=== PATIENT | male | born 1990 | race Caucasian/White ===

== ENCOUNTER 2016-04-30 23:16 | Emergency (ER) | payer SELFPAY ==
[~2016-04-30] VITALS: Ht 182.9 cm; Wt 66.0 kg
--- OUTSIDE RECORDS SUMMARY | 2016-04-30 23:20 | XMS REPORT ---
Author Author GENERATED, SYSTEM Organization Unknown Address Unknown Phone Unavailable Care Team Providers Care Manager Technology Name Role Phone UNASSIGNED DOCTOR MD JOEL DOCTOR PP [phone] Reason For Visit Reason for Visit from 02/10/2015 6:06 PM:* Pt Stated Reason for Adm : DKA Chief Complaint DKA Social History Social History from 02/10/2015 6:06 PM:* Tobacco Use? : Current Everyday Smoker Functional Status Functional Status from 02/12/2015 7:28 AM:* LOC : Alert * Oriented To : Person,Place,Time,Event * Weight Bearing Status : Full * Assist Level : Independent * # Assists : Independent Functional Status from 02/11/2015 7:10 PM:* LOC : Alert * Oriented To : Person,Place,Time,Event * Weight Bearing Status : Full * Assist Level : Independent * # Assists : Independent Functional Status from 02/11/2015 7:00 AM:* LOC : Alert * Oriented To : Person,Place,Time,Event * Weight Bearing Status : Full * Assist Level : Independent * # Assists : Independent Functional Status from 02/10/2015 7:30 PM:* LOC : Alert * Oriented To : Person,Place,Time,Event * Weight Bearing Status : Full * Assist Level : Independent * # Assists : Independent Functional Status from 02/10/2015 6:06 PM:* LOC : Alert * Oriented To : Person,Place,Time * Weight Bearing Status : Full * Assist Level : Independent * # Assists : Independent Vital Signs Hospital Vital Signs from 02/12/2015 12:41 PM:* Height : 6/0 ft,in * Temperature : 98.6 F * Pulse : 97 * Respirations : 18 * BP : 161/91 Hospital Vital Signs from 02/12/2015 12:00 PM:* Heart Rate : 76 * Resp Rate : 20 * Systolic BP (mmHg) : 124 * Diastolic BP (mmHg) : 82 * Mean BP (mmHg) : 97 * O2 Saturation (%) : 98 Hospital Vital Signs from 02/12/2015 8:00 AM:* Heart Rate : 72 * Resp Rate : 16 * Systolic BP (mmHg) : 108 * Diastolic BP (mmHg) : 66 * Mean BP (mmHg) : 84 * O2 Saturation (%) : 99 Hospital Vital Signs from 02/12/2015 7:28 AM:* Heart Rate : 76 Hospital Vital Signs from 02/12/2015 7:00 AM:* Temp : 98 * Heart Rate : 76 * Resp Rate : 20 * Systolic BP (mmHg) : 115 * Diastolic BP (mmHg) : 75 * Mean BP (mmHg) : 84 * O2 Saturation (%) : 99 Hospital Vital Signs from 02/12/2015 6:10 AM:* Weight : 57/ kg * Height : 6/0 ft,in Hospital Vital Signs from 02/12/2015 12:00 AM:* Temp : 96.9 * Systolic BP (mmHg) : 115 * Diastolic BP (mmHg) : 69 * Mean BP (mmHg) : 83 Hospital Vital Signs from 02/11/2015 8:00 PM:* Temp : 97.7 * Resp Rate : 16 * Systolic BP (mmHg) : 111 * Diastolic BP (mmHg) : 74 * Mean BP (mmHg) : 86 Hospital Vital Signs from 02/11/2015 4:00 PM:* Heart Rate : 93 * Resp Rate : 16 * Systolic BP (mmHg) : 114 * Diastolic BP (mmHg) : 79 * Mean BP (mmHg) : 91 Hospital Vital Signs from 02/11/2015 9:23 AM:* Weight : 57.5/ kg * Height : 6/0 ft,in Hospital Vital Signs from 02/11/2015 8:00 AM:* Temp : 98.6 * Heart Rate : 77 * Resp Rate : 14 * Systolic BP (mmHg) : 111 * Diastolic BP (mmHg) : 81 * Mean BP (mmHg) : 93 Hospital Vital Signs from 02/11/2015 6:00 AM:* Heart Rate : 79 * Resp Rate : 10 Hospital Vital Signs from 02/11/2015 5:28 AM:* Weight : 57.5/ kg * Height : 6/0 ft,in Hospital Vital Signs from 02/11/2015 5:00 AM:* Heart Rate : 79 * Resp Rate : 10 Hospital Vital Signs from 02/11/2015 4:00 AM:* Heart Rate : 85 * Resp Rate : 12 * Systolic BP (mmHg) : 110 * Diastolic BP (mmHg) : 68 * Mean BP (mmHg) : 79 * O2 Saturation (%) : 100 Hospital Vital Signs from 02/11/2015 3:00 AM:* Temp : 98.5 * Heart Rate : 78 * Resp Rate : 10 * Systolic BP (mmHg) : 100 * Diastolic BP (mmHg) : 73 * Mean BP (mmHg) : 81 * O2 Saturation (%) : 99 Hospital Vital Signs from 02/11/2015 2:00 AM:* Heart Rate : 83 * Resp Rate : 22 * Systolic BP (mmHg) : 108 * Diastolic BP (mmHg) : 69 * Mean BP (mmHg) : 85 * O2 Saturation (%) : 100 Hospital Vital Signs from 02/11/2015 1:00 AM:* Heart Rate : 93 * Resp Rate : 14 * Systolic BP (mmHg) : 115 * Diastolic BP (mmHg) : 75 * Mean BP (mmHg) : 88 * O2 Saturation (%) : 99 Hospital Vital Signs from 02/11/2015 12:00 AM:* Heart Rate : 86 * Resp Rate : 13 * Systolic BP (mmHg) : 110 * Diastolic BP (mmHg) : 72 * Mean BP (mmHg) : 82 * O2 Saturation (%) : 96 Hospital Vital Signs from 02/10/2015 11:00 PM:* Temp : 98 * Heart Rate : 92 * Resp Rate : 17 * Systolic BP (mmHg) : 109 * Diastolic BP (mmHg) : 74 * Mean BP (mmHg) : 84 * O2 Saturation (%) : 98 Hospital Vital Signs from 02/10/2015 10:00 PM:* Heart Rate : 90 * Resp Rate : 21 * Systolic BP (mmHg) : 112 * Diastolic BP (mmHg) : 75 * Mean BP (mmHg) : 86 Hospital Vital Signs from 02/10/2015 9:00 PM:* Heart Rate : 89 * Resp Rate : 15 * Systolic BP (mmHg) : 113 * Diastolic BP (mmHg) : 75 * Mean BP (mmHg) : 92 * O2 Saturation (%) : 100 Hospital Vital Signs from 02/10/2015 8:00 PM:* Resp Rate : 28 * Systolic BP (mmHg) : 116 * Diastolic BP (mmHg) : 82 * Mean BP (mmHg) : 92 * O2 Saturation (%) : 100 Hospital Vital Signs from 02/10/2015 7:30 PM:* Heart Rate : 92 Hospital Vital Signs from 02/10/2015 7:00 PM:* Temp : 98.7 * Heart Rate : 98 * Resp Rate : 18 * Systolic BP (mmHg) : 109 * Diastolic BP (mmHg) : 81 * Mean BP (mmHg) : 90 * O2 Saturation (%) : 98 Hospital Vital Signs from 02/10/2015 6:06 PM:* Weight : 57.9/ kg * Height : 6/0 ft,in Hospital Vital Signs from 02/10/2015 6:00 PM:* Temp : 98.6 * Heart Rate : 98 * Resp Rate : 15 * Systolic BP (mmHg) : 114 * Diastolic BP (mmHg) : 89 * Mean BP (mmHg) : 96 * O2 Saturation (%) : 99 Hospital Vital Signs from 02/10/2015 5:30 PM:* Resp Rate : 15 Hospital Vital Signs from 02/10/2015 5:15 PM:* Heart Rate : 96 * Resp Rate : 15 * O2 Saturation (%) : 99 Hospital Vital Signs from 02/10/2015 5:03 PM:* Heart Rate : 100 * Resp Rate : 25 * O2 Saturation (%) : 94 Results Chemistry from 02/12/2015 4:16 AMSODIUM 137 MMOL/L (136-145 MMOL/L) POTASSIUM 3.0 MMOL/L L (3.5-5.1 MMOL/L) CHLORIDE 107 MMOL/L (98-107 MMOL/L) TCO2 21.7 MMOL/L (21.0-32.0 MMOL/L) *ANION GAP 8.3 MMOL/L (8.0-16.0 MMOL/L) BUN 12 MG/DL (7-18 MG/DL) CREATININE 0.69 MG/DL L (0.70-1.30 MG/DL) *BUN/CREATININE RATIO 17.4 H (9.1-17.0 ) GLUCOSE 217 MG/DL H (65-99 MG/DL) *GFR EST NON AFR ESTONIAN >90 ML/MIN *GFRA EST AFR AMER >90 ML/MIN CALCIUM 8.7 MG/DL (8.5-10.1 MG/DL) BILIRUBIN TOTAL 0.82 MG/DL (0.20-1.00 MG/DL) TOTAL PROTEIN 6.2 GM/DL L (6.4-8.2 GM/DL) ALBUMIN 3.4 GM/DL (3.4-5.0 GM/DL) *GLOBULIN 2.8 GM/DL (2.3-3.5 GM/DL) *A/G RATIO 1.2 MG/DL L (1.5-2.2 MG/DL) ALK PHOS 77 U/L (46-116 U/L) ALT (SGPT) 28 U/L (14-59 U/L) AST (SGOT) 13 U/L L (15-37 U/L) Chemistry from 02/11/2015 12:58 PMSODIUM 135 MMOL/L L (136-145 MMOL/L) POTASSIUM 3.4 MMOL/L L (3.5-5.1 MMOL/L) CHLORIDE 105 MMOL/L (98-107 MMOL/L) TCO2 20.9 MMOL/L L (21.0-32.0 MMOL/L) *ANION GAP 9.1 MMOL/L (8.0-16.0 MMOL/L) BUN 9 MG/DL (7-18 MG/DL) CREATININE 0.97 MG/DL (0.70-1.30 MG/DL) *BUN/CREATININE RATIO 9.3 (9.1-17.0 ) GLUCOSE 256 MG/DL H (65-99 MG/DL) CALCIUM 8.4 MG/DL L (8.5-10.1 MG/DL) *SODIUM, CORRECTED 137 MMOL/L (136-145 MMOL/L) *OSMOLALITY, CALCULATED 287 MOSM/KG (278-305 MOSM/KG) MAGNESIUM 1.8 MG/DL (1.8-2.4 MG/DL) PHOSPHORUS 1.9 MG/DL L (2.6-4.7 MG/DL) Chemistry from 02/11/2015 9:18 AMSODIUM 137 MMOL/L (136-145 MMOL/L) POTASSIUM 3.4 MMOL/L L (3.5-5.1 MMOL/L) CHLORIDE 108 MMOL/L H (98-107 MMOL/L) TCO2 19.7 MMOL/L L (21.0-32.0 MMOL/L) *ANION GAP 9.3 MMOL/L (8.0-16.0 MMOL/L) BUN 8 MG/DL (7-18 MG/DL) CREATININE 0.84 MG/DL (0.70-1.30 MG/DL) *BUN/CREATININE RATIO 9.5 (9.1-17.0 ) GLUCOSE 123 MG/DL H (65-99 MG/DL) CALCIUM 8.5 MG/DL (8.5-10.1 MG/DL) *SODIUM, CORRECTED 137 MMOL/L (136-145 MMOL/L) *OSMOLALITY, CALCULATED 284 MOSM/KG (278-305 MOSM/KG) MAGNESIUM 1.8 MG/DL (1.8-2.4 MG/DL) PHOSPHORUS 1.9 MG/DL L (2.6-4.7 MG/DL) Chemistry from 02/11/2015 4:22 AMSODIUM 134 MMOL/L L (136-145 MMOL/L) POTASSIUM 3.3 MMOL/L L (3.5-5.1 MMOL/L) CHLORIDE 107 MMOL/L (98-107 MMOL/L) TCO2 18.4 MMOL/L L (21.0-32.0 MMOL/L) *ANION GAP 8.6 MMOL/L (8.0-16.0 MMOL/L) BUN 9 MG/DL (7-18 MG/DL) CREATININE 0.88 MG/DL (0.70-1.30 MG/DL) *BUN/CREATININE RATIO 10.2 (9.1-17.0 ) GLUCOSE 200 MG/DL H (65-99 MG/DL) CALCIUM 8.5 MG/DL (8.5-10.1 MG/DL) *SODIUM, CORRECTED 136 MMOL/L (136-145 MMOL/L) *OSMOLALITY, CALCULATED 282 MOSM/KG (278-305 MOSM/KG) *EST AVG GLUCOSE 323.5 gm/dl MAGNESIUM 1.9 MG/DL (1.8-2.4 MG/DL) PHOSPHORUS 1.3 MG/DL L (2.6-4.7 MG/DL) HEMOGLOBIN A1C 12.9 % H (4.5-6.2 %) Chemistry from 02/11/2015 12:12 AMSODIUM 130 MMOL/L L (136-145 MMOL/L) POTASSIUM 3.6 MMOL/L (3.5-5.1 MMOL/L) CHLORIDE 103 MMOL/L (98-107 MMOL/L) TCO2 17.1 MMOL/L L (21.0-32.0 MMOL/L) *ANION GAP 9.9 MMOL/L (8.0-16.0 MMOL/L) BUN 10 MG/DL (7-18 MG/DL) CREATININE 1.04 MG/DL (0.70-1.30 MG/DL) *BUN/CREATININE RATIO 9.6 (9.1-17.0 ) GLUCOSE 310 MG/DL H (65-99 MG/DL) *GFR EST NON AFR ESTONIAN >90 ML/MIN *GFRA EST AFR AMER >90 ML/MIN CALCIUM 8.4 MG/DL L (8.5-10.1 MG/DL) *SODIUM, CORRECTED 133 MMOL/L L (136-145 MMOL/L) *OSMOLALITY, CALCULATED 281 MOSM/KG (278-305 MOSM/KG) MAGNESIUM 1.8 MG/DL (1.8-2.4 MG/DL) PHOSPHORUS 1.9 MG/DL L (2.6-4.7 MG/DL) Chemistry from 02/10/2015 10:01 PMSODIUM 132 MMOL/L L (136-145 MMOL/L) POTASSIUM 3.6 MMOL/L (3.5-5.1 MMOL/L) CHLORIDE 104 MMOL/L (98-107 MMOL/L) TCO2 14.8 MMOL/L L (21.0-32.0 MMOL/L) *ANION GAP 13.2 MMOL/L (8.0-16.0 MMOL/L) BUN 11 MG/DL (7-18 MG/DL) CREATININE 1.02 MG/DL (0.70-1.30 MG/DL) *BUN/CREATININE RATIO 10.8 (9.1-17.0 ) GLUCOSE 210 MG/DL H (65-99 MG/DL) CALCIUM 8.4 MG/DL L (8.5-10.1 MG/DL) *SODIUM, CORRECTED 134 MMOL/L L (136-145 MMOL/L) *OSMOLALITY, CALCULATED 280 MOSM/KG (278-305 MOSM/KG) MAGNESIUM 1.8 MG/DL (1.8-2.4 MG/DL) PHOSPHORUS 2.0 MG/DL L (2.6-4.7 MG/DL) Chemistry from 02/10/2015 8:15 PMSODIUM 132 MMOL/L L (136-145 MMOL/L) POTASSIUM 3.6 MMOL/L (3.5-5.1 MMOL/L) CHLORIDE 102 MMOL/L (98-107 MMOL/L) TCO2 17.6 MMOL/L L (21.0-32.0 MMOL/L) *ANION GAP 12.4 MMOL/L (8.0-16.0 MMOL/L) BUN 13 MG/DL (7-18 MG/DL) CREATININE 1.03 MG/DL (0.70-1.30 MG/DL) *BUN/CREATININE RATIO 12.6 (9.1-17.0 ) GLUCOSE 174 MG/DL H (65-99 MG/DL) CALCIUM 8.5 MG/DL (8.5-10.1 MG/DL) *SODIUM, CORRECTED 133 MMOL/L L (136-145 MMOL/L) *OSMOLALITY, CALCULATED 278 MOSM/KG (278-305 MOSM/KG) MAGNESIUM 1.8 MG/DL (1.8-2.4 MG/DL) PHOSPHORUS 2.0 MG/DL L (2.6-4.7 MG/DL) Chemistry from 02/10/2015 6:30 PMSODIUM 133 MMOL/L L (136-145 MMOL/L) POTASSIUM 3.4 MMOL/L L (3.5-5.1 MMOL/L) CHLORIDE 102 MMOL/L (98-107 MMOL/L) TCO2 17.0 MMOL/L L (21.0-32.0 MMOL/L) *ANION GAP 14.0 MMOL/L (8.0-16.0 MMOL/L) BUN 14 MG/DL (7-18 MG/DL) CREATININE 1.11 MG/DL (0.70-1.30 MG/DL) *BUN/CREATININE RATIO 12.6 (9.1-17.0 ) GLUCOSE 171 MG/DL H (65-99 MG/DL) CALCIUM 8.7 MG/DL (8.5-10.1 MG/DL) *SODIUM, CORRECTED 134 MMOL/L L (136-145 MMOL/L) *OSMOLALITY, CALCULATED 281 MOSM/KG (278-305 MOSM/KG) MAGNESIUM 1.8 MG/DL (1.8-2.4 MG/DL) PHOSPHORUS 2.0 MG/DL L (2.6-4.7 MG/DL) Hematology from 02/12/2015 4:17 AMWBC 5.2 X10e3/UL (3.6-11.2 X10e3/UL) RBC 4.98 X10e6/UL (4.06-5.63 X10e6/UL) HEMOGLOBIN 14.6 G/DL (12.5-16.3 G/DL) HEMATOCRIT 40.4 % (36.7-47.1 %) *MCV 81.2 FL (80.0-100.0 FL) *MCH 29.3 PG (27.0-33.0 PG) *MCHC 36.1 G/DL H (32.0-36.0 G/DL) *RDW 13.4 % (12.3-17.0 %) *RDWSD 38.1 (37.1-47.8 ) PLATELET 159 X10e3/UL (159-386 X10e3/UL) *MPV 9.4 FL (7.4-10.4 FL) AUTOMATED DIFF PERFORMED SEGS 39.6 % *LYMPHOCYTES 50.3 % *MONOCYTES 5.9 % *EOSINOPHILS 3.4 % *BASOPHILS 0.8 % *ABSOLUTE NEUTROPHILS 2.10 X10e3/UL (1.80-7.80 X10e3/UL) *ABSOLUTE LYMPHOCYTES 2.60 X10e3/UL (1.00-3.00 X10e3/UL) *ABSOLUTE MONOCYTES 0.30 X10e3/UL (0.30-1.00 X10e3/UL) *ABSOLUTE EOSINOPHILS 0.20 X10e3/UL (0.00-0.50 X10e3/UL) *ABSOLUTE BASOPHILS 0.00 X10e3/UL (0.00-0.20 X10e3/UL) Problems Encounter Diagnosis * Blood Glucose Abnormal Status:Active. * Diabetes Mellitus, Type 1 Status:Active. * Diabetic Ketoacidosis Status:Active. * Nutritional Deficiency Status:Active. Encounters Encounter Diagnosis * Blood Glucose Abnormal Status:Active. * Diabetes Mellitus, Type 1 Status:Active. * Diabetic Ketoacidosis Status:Active. * Nutritional Deficiency Status:Active. Plan of Care Treatment Plan from 02/11/2015 10:09 AM:* Care Management Note : Admission status: Inpatient. Per H&P: The patient is a 24-year-old, male, who presented to the emergency room with a 6-week history of weight loss. The patient stated he has lost about 30 pounds during this duration. He is constantly thirsty, so he drinks a lot of water and then he has to go to the bathroom right away as well. He stated that for the last 1 week his symptoms have been worse this morning and this morning he became very dizzy when he tried to stand up. He was weak all over as well. He therefore decided to come to the emergency room. In the ER , his blood sugar was found to be elevated at 320 and other labs indicated DKA, and was sent to ICU for further monitoring. labs and vital signs noted. POC: Colon And Rectal Surgeon and investment fund manager consulted. monitor vital signs. Brad Skelton for DVT prevention. DKA protocol was initiated. Strict I/O. Monitor bedside glucose checks hourly. NPO. Monitor labs. IVF at 150. IV Insulin drip started. IV Protonix. stay anticipated longer than 2 midnights. meets inpatient status. Procedures No relevant procedures performed. Immunizations No immunizations administered or ordered. Hospital Course Hospital Discharge Instructions Allergies, Adverse Reactions, Alerts * No Latex Allergy. * No IV Contrast Allergy. * No Known Drug Allergies. Medication Medication reconciliation has not been performed.
--- OUTSIDE RECORDS SUMMARY | 2016-04-30 23:20 | XMS REPORT ---
Author Author GENERATED, SYSTEM Organization Unknown Address Unknown Phone Unavailable Care Team Providers Care Weaving Professor Name Role Phone UNASSIGNED DOCTOR , DOCTOR PP [phone] Reason For Visit Chief Complaint DKA Social History Functional Status Vital Signs Results Problems Encounter Diagnosis No relevant problems exist. Additional Problems * Blood Glucose Abnormal Status:Active. * Diabetes Mellitus, Type 1 Status:Active. * Nutritional Deficiency Status:Active. Encounters Encounter Diagnosis No relevant problems exist. Plan of Care Procedures No relevant procedures performed. Immunizations No immunizations administered or ordered. Hospital Course Hospital Discharge Instructions Allergies, Adverse Reactions, Alerts * Latex Allergy has not been assessed. * IV Contrast Allergy has not been assessed. * No Known Drug Allergies. Medication Medication reconciliation has not been performed.
[2016-04-30 23:24] VITALS: TEMP 98.6; Ht 182.9 cm; Wt 66.0 kg
--- NOTE | 2016-04-30 23:49 | ERPDOC ---
Departure Disposition Decision Date: May 01, 2016 Disposition Decision Time: 01:56 Disposition: 01 DISCHARGED HOME, SELF-CARE Impression Impression Impression: Primary Impression: Gastroenteritis Severity: Moderate Condition: Stable Seen By: Physician only Patient Instructions: Gastroenteritis (ED) Problems/Meds/Labs Reviewed?: Yes Medications reviewed and manag: Yes Follow up care ordered?: Yes Mental Status: Oriented Scripts Prochlorperazine Maleate (Prochlorperazine Maleate) 10 Mg Tablet 10 MG PO QID Y for NAUSEA &/OR VOMITING, #15 TAB Take 1 tablet, by mouth, 4 times a day. Prov: GARRETT HITCHCOCK MD 05/01/16 HPI - Abdominal Pain General Chief Complaint: Nausea,Vomiting,Diarrhea Stated Complaint: DIABETIC ISSUES Time Seen by Provider: 23:49 Source: patient, family History/Exam Limitations: no limitations HPI - Abdominal Pain Initial Comments Patient is a 26-year-old male presents emergency room for evaluation of nausea. Patient's had a 2 to three-day history of nausea with no vomiting, has not been eating well secondary to no appetite. Patient is a type I diabetic who takes his mother's insulin because he does not have a primary care physician. Patient worsening symptoms so decided today to present to the ER for evaluation. Occurred At: home Onset: Gradual, Getting worse Duration: other (2 days) Allergies: Coded Allergies: NKDA (Verified Allergy, Unknown, 04/30/16) Past History Past Medical History Metabolic: diabetes Social History Smoking Status: Current every day smoker Substance Use Type: does not use Alcohol Intake: none Review of Systems Constitutional Constitutional: appetite decrease, weakness, DENIES: chills, dizziness, fever Eyes Vision: DENIES: double vision, loss of visual arce ENMT Sinuses: DENIES: congestion, rhinorrhea Mouth/Throat: DENIES: scratchy throat, sore throat Cardiovascular Cardiac: DENIES: chest pain, dyspnea on exertion Pulmonary Respiratory: DENIES: cough, dyspnea, sputum, tachypnea GI Upper Abdomen: nausea, DENIES: pain, vomiting Lower Abdomen: DENIES: constipation, diarrhea, pain General: DENIES: burning, frequency, urgency Musculoskeletal General: DENIES: cramps, pain, weakness Integumentary Skin: DENIES: color change, itching, rash Endocrine Endocrine: DENIES: heat/cold intolerance Hematologic/Lymphatic Hematologic/Lymphatic: DENIES: anemia Physical Exam General General Nourishment: well nourished, well developed General Body Habitus: well groomed Vitals and Pain Weight: Kilograms: Height (feet): Height (inches): Triage Pain Scale: RN VS reviewed by Provider: Yes Eyes (brief) Eyes Brief: found: EOMI ENMT (brief) ENMT Brief: FOUND: mucosa moist, normal dentition, NOT FOUND: nasal erythema, pharnyx erythema, tonsillar deviation Neck (brief) Neck: NOT FOUND: adenopathy, spasm, tenderness Respiratory (brief) Respiratory: FOUND: clear all arce, equal bilaterally, NOT FOUND: rales, wheezes Cardiovascular (brief) Cardiac: FOUND: regular rate, regular rhythm Capillary Refill: <2 sec Abdomen (brief) Abdominal Brief: FOUND: bowel normo active x4, soft, NOT FOUND: tender Lymphatic (brief) Lymphatic Brief: NOT FOUND: adenopathy Musculoskeletal (brief) Musculoskeletal Brief: NOT FOUND: spasm, tenderness Integumentary (brief) Integumentary Brief: FOUND: dry, pink, warm, NOT FOUND: rash Neurologic (brief) Neurological Brief: FOUND: CN w/o gross def to obs, motor-no gross deficits, sensory-no gross deficits Psychiatric (brief) Psychiatric Brief: FOUND: alert, oriented Differential Diagnoses Considering: Achalasia, Appendicitis, DKA, Food Poisoning, Gastroenteritis, Gastroparesis, Hyponatremia, Hypokalemia, Hypoglycemia, Pancreatitis, UTI, Sigmoid Volvulus, Cecal Volvulus Progress Results/Orders Orders Procedure Category Date Status Time Iv Lock (Ed Only) EDM 04/30/16 Transmitted 23:58 Cbc W/Auto LAB 04/30/16 Complete Diff-Reflex Manual 23:58 Cmp - Comprehensive LAB 04/30/16 Complete Metabolic 23:58 Lipase LAB 04/30/16 Complete 23:58 Ua, Dip Wreflex LAB 04/30/16 Complete Microsc & Seamer Elastic Band 23:58 Normal Saline (Normal PHA 05/01/16 Complete Saline Iv) 00:00 Lab Results Laboratory Tests Test 04/30/16 23:31 05/01/16 00:55 05/01/16 00:58 Glucometer 178mg/dL Urine Collection Type Voided-not cc-midstr Urine Color Yellow Urine Turbidity Clear Urine pH 5.5 Urine Specific [place] 1.025 Urine Protein Trace Urine Glucose (UA) 2+ Urine Ketones 1+ Urine Blood Negative Urine Nitrite Negative Urine Bilirubin Negative Urine Urobilinogen 0.2EU/DL Urine Leukocyte Esterase Negative Urinalysis Comment Microscopic not ind. White Blood Count 5.4T/MM3 Red Blood Count 5.30M/MM3 Hemoglobin 15.5GM/DL Hematocrit 43.8% Mean Corpuscular Volume 82.6UM3 Mean Corpuscular Hemoglobin 29.2UUG Mean Corpuscular Hemoglobin Concent 35.4GM/DL RDW Standard Deviation 36.6FL Platelet Count 201T/MM3 Mean Platelet Volume 10.9UM3 Immature Granulocyte % (Auto) 0.2% Neutrophils (%) (Auto) 65.2% Lymphocytes (%) (Auto) 25.2% Monocytes (%) (Auto) 7.5% Eosinophils (%) (Auto) 1.7% Basophils (%) (Auto) 0.2% Absolute Immature Granulocyte (auto 0.01T/MM3 Absolute Neutrophils (auto) 3.5T/MM3 Absolute Lymphocytes (auto) 1.4T/MM3 Absolute Monocytes (auto) 0.4T/MM3 Absolute Eosinophils (auto) 0.1T/MM3 Absolute Basophils (auto) 0.0T/MM3 Turbidity < 20 Sodium Level 143MEQ/L Potassium Level 3.9MEQ/L Chloride Level 107MEQ/L Carbon Dioxide Level 24MEQ/L Anion Gap 12MEQ/L Blood Urea Nitrogen 19.0MG/DL Creatinine 0.6MG/DL Glomerular Filtration Rate Calc 166 BUN/Creatinine Ratio 32RATIO Glucose Level 240MG/DL Calculated Osmolality 285MOSM/KG Calcium Level 9.0MG/DL Total Bilirubin 0.60MG/DL Icterus Index < 2 Aspartate Amino Transf (AST/SGOT) 22U/L Alanine Aminotransferase (ALT/SGPT) 32U/L Alkaline Phosphatase 95U/L Total Protein 6.9G/DL Albumin 3.9G/DL Globulin 3.0G/DL Albumin/Globulin Ratio 1.3RATIO Lipase 25U/L Chemistry Specimen Hemolysis < 15 Medications Current ED Medications Sodium Chloride (Normal Saline IV) 1,000 ml @ 999 mls/hr Q1H1M ONCE IV Last administered on 05/01/16t 00:56; Start 05/01/16 at 00:00; Stop 05/01/16 at 01:00 ; Status DC Progress Progress Patient's laboratories are noncontributory, patient's symptoms improved with IV fluids and medications we'll discharge patient home, establish herself with a primary medical physician for proper insulin dosing and further evaluation GARRETT HITCHCOCK MD Apr 30, 2016 23:49
[2016-05-01] MEDS ORDERED: NORMAL SALINE 1,000 ML IV ONE
--- OUTSIDE RECORDS SUMMARY | 2016-05-01 00:15 | XMS REPORT ---
Author Author GENERATED, SYSTEM Organization Unknown Address Unknown Phone Unavailable Care Team Providers Care Baseball Glove Shaper Name Role Phone UNASSIGNED DOCTOR , DOCTOR PP [phone] Reason For Visit Chief Complaint DKA Social [...]
--- OUTSIDE RECORDS SUMMARY | 2016-05-01 00:16 | XMS REPORT ---
Author Author GENERATED, SYSTEM Organization Unknown Address Unknown Phone Unavailable Care Team Providers Care Indian Blanket Weaver Name Role Phone UNASSIGNED DOCTOR MD JOEL DOCTOR PP [phone] Reason For Visit Reason for Visit from [...] H (65-99 MG/DL) *GFR EST NON AFR EMIRATI >90 ML/MIN *GFRA EST AFR AMER >90 [...] H (65-99 MG/DL) *GFR EST NON AFR EMIRATI >90 ML/MIN *GFRA EST AFR AMER >90 [...] monitoring. labs and vital signs noted. POC: Body Repairer and early childhood educator aide consulted. monitor vital signs. Brad Skelton for [...]
--- NOTE | 2016-05-01 00:55 | NUR ---
BR PT AMBULATES TO AND VOIDS AT THIS TIME, URINE SAMPLE IS COLLECTED FOR LAB.
[2016-05-01 01:03] LABS: BASOPHILS % (AUTO) 0.2 % (0-2); EOSINOPHILS # (AUTO) 0.1 T/MM3 (0-0.5); EOSINOPHILS % (AUTO) 1.7 % (0-4); HCT - HEMATOCRIT 43.8 % (41-53); HGB - HEMOGLOBIN 15.5 GM/DL (13.5-17.5); IMMATURE GRANULOCYTE # (AUTO) 0.01 T/MM3 (0.00-0.03); IMMATURE GRANULOCYTE % (AUTO) 0.2 % (0.0-0.5); LYMPHOCYTES # (AUTO) 1.4 T/MM3 (1-4.8); LYMPHOCYTES % (AUTO) 25.2 % (23-45); MEAN CORPUSCULAR HGB 29.2 UUG (26-34); MEAN CORPUSCULAR HGB CONC(MCHC 35.4 GM/DL (31-37); MEAN CORPUSCULAR VOLUME 82.6 UM3 (80-100); MEAN PLATELET VOLUME 10.9 UM3 (9.4-12.4); MONOCYTES # (AUTO) 0.4 T/MM3 (0-0.8); MONOCYTES % (AUTO) 7.5 % (0-9.0); NEUTROPHILS #(AUTO)-ABSOLUTE 3.5 T/MM3 (1.8-7.7); NEUTROPHILS % (AUTO) 65.2 % (33-66); WBC - WHITE BLOOD COUNT 5.4 T/MM3 (4.5-11.0)
[2016-05-01 01:09] LABS: ALBUMIN 3.9 G/DL (3.5-5.0); ALBUMIN/GLOBULIN RATIO 1.3 RATIO (1.1-2.2); ALKALINE PHOSPHATASE 95 U/L (38-126); ALT (SGPT) 32 U/L (21-72); ANION GAP 12 MEQ/L (5-15); AST (SGOT) 22 U/L (17-59); BUN/CREATININE RATIO 32 RATIO (6-26); CHLORIDE 107 MEQ/L (98-107); CO2 - CARBON DIOXIDE 24 MEQ/L (22-30); CREATININE 0.6 MG/DL (0.8-1.5); GLOMERULAR FILTRATION RATE 166; GLUCOSE 240 MG/DL (75-110); LIPASE 25 U/L (23-300); POTASSIUM 3.9 MEQ/L (3.6-5); SODIUM 143 MEQ/L (134-144); TOTAL PROTEIN 6.9 G/DL (6.3-8.2)
[2016-05-01 01:42] LABS: BLOOD, URINE NEGATIVE (NEGATIVE); COLOR,URINE YELLOW (YELLOW); LEUKOCYTE ESTERASE ,URINE NEGATIVE (NEGATIVE); NITRITE,URINE NEGATIVE (NEGATIVE); UROBILINOGEN,URINE 0.2 EU/DL (NORMAL)
--- NOTE | 2016-05-01 01:46 | NUR ---
STATUS NS IVF BOLUS COMPLETE AT THIS TIME, PT DENIES ANY COMPLAINTS OR NEEDS.
[2016-05-01] MEDS ORDERED: PROC10TA PO (02:00)
[2016-05-01] MEDS ORDERED: INSU100I21 SQ ×2 (02:14)
--- NOTE | 2016-05-01 02:40 | NUR ---
BR PT AMBULATES TO BR AT THIS TIME.
[2016-05-01 02:48] VITALS: BP 112/66; PULSE 82; RESP 16; O2SAT 95
--- NOTE | 2016-05-01 02:48 | NUR ---
DEPART PT IS DISCHARGED AT THIS TIME, INSTRUCTIONS ARE REVIEWED AND UNDERSTANDING IS VOICED. PT LEAVES AMBULATORY WITH HIS GIRLFRIEND.
== END 2016-05-01 02:48 | disposition home or self-care (01) ==
LOC: ED 23:16
DX: K52.9 Noninfective gastroenteritis and colitis, unspecified (principal); E10.9 Type 1 diabetes mellitus without complications; Z79.4 Long term (current) use of insulin
CPT/HCPCS: 80053; 81003; 82948; 83690; 85025